=== PATIENT | male | born 2000 | race African-American/Black ===

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

== ENCOUNTER 2022-01-16 17:15 | Emergency (ER) | payer SELFPAY ==
--- OUTSIDE RECORDS SUMMARY | 2022-01-16 17:19 | XMS REPORT | Continuity of Care Document ---
:2000 Author Organization [facility] t Address [address] [place] [address] Care Team Providers Name Role Phone Unavailable Unavailable Unavailable Problems This patient has no known problems. Allergies, Adverse Reactions, Alerts This patient has no known allergies or adverse reactions. Medications This patient has no known medications. Procedures This patient has no known procedures. Results This patient has no known results.
--- NOTE | 2022-01-16 19:01 | EDPHYS ---
[facility]ician [facility]ation [facility] Name: Montrell Negrete Age: 21 yrs Sex: Male : 2000 Arrival Date: 01/16/2022 Time: 17:16 Bed IW2 Private MD: ED Physician Jerrod Thornton HPI: 01/16 17:44 This 21 yrs old Black Male presents to ER via Ambulatory with complaints of Headache, jmm STD Exposure. 17:44 Onset: The symptoms/episode began/occurred gradually. jmm 17:44 This is a 21 year old male with a history of asthma that presents to the ED with jmm complaints of std exposure. partner recently diagnosed with gonorrhea. Historical: - Allergies: 17:52 No Known Allergies; ss - Home Meds: 19:25 albuterol sulfate 90 mcg/actuation Inhl HFAA 1 puff every 4-6 hours [Active]; Topamax kd3 Oral [Active]; - PMHx: 17:52 Asthma; headaches and seasonal allergies; ss - PSHx: 17:52 None; ss - Immunization history:: Adult Immunizations unknown. - Social history:: Smoking status: Patient denies any tobacco usage or history of. ROS: 18:57 Constitutional: Negative for fever, chills, and weight loss, Cardiovascular: Negative jmm for chest pain, palpitations, and edema, Respiratory: Negative for shortness of breath, cough, wheezing, and pleuritic chest pain. 18:57 Neuro: Positive for headache. 18:57 All other systems are negative. Exam: 18:57 Constitutional: This is a well developed, well nourished patient who is awake, alert, jmm and in no acute distress. Head/Face: atraumatic. Eyes: EOMI, no conjunctival erythema appreciated ENT: Moist Mucus Membranes Neck: Trachea midline, Supple Chest/axilla: Normal chest wall appearance and motion. Cardiovascular: Regular rate and rhythm. No edema appreciated Respiratory: Normal respirations, no respiratory distress appreciated Abdomen/GI: Non distended Back: Normal ROM Skin: General appearance color normal MS/ Extremity: Moves all extremities, no obvious deformities appreciated, no edema noted to the lower extremities Neuro: Awake and alert Psych: Behavior is normal, Mood is normal, Patient is cooperative and pleasant Vital Signs: 17:50 BP 143 / 103; Pulse 104; Resp 17; Temp 97; Pulse Ox 98% ; Weight 138.35 kg; Height 6 ss ft. 2 in. (187.96 cm); Pain 8/10; 19:25 BP 142 / 82; Pulse 102; Resp 17; Pulse Ox 99% on R/A; kd3 17:50 Body Mass Index 39.16 (138.35 kg, 187.96 cm) MDM: 17:44 Patient medically screened. [facility] 18:59 Data reviewed: vital signs, nurses notes. Counseling: I had a detailed discussion with jm the patient and/or guardian regarding: the historical points, exam findings, and any diagnostic results supporting the discharge/admit diagnosis, the need for outpatient follow up, to return to the emergency department if symptoms worsen or persist or if there are any questions or concerns that arise at home. Administered Medications: 19:20 Drug: Rocephin (cefTRIAXone) 1 grams Route: IM; Site: right gluteus; kd3 19:26 Follow up: Response: No adverse reaction kd3 19:20 Drug: AZITHromycin 1 grams Route: PO; kd3 19:26 Follow up: Response: No adverse reaction kd3 Disposition: 01/17 10:50 Co-signature as Attending Physician, Jerrod Thornton MD I agree with the assessment and kdr plan of care. Disposition Summary: 01/16/22 19:00 Discharge Ordered Location: Home [facility] Condition: Stable [facility] Diagnosis - Person with feared health complaint in whom no diagnosis is made jm Followup: jm - With: Private Physician - When: 2 - 3 days - Reason: Recheck today's complaints, Continuance of care, Re-evaluation by your physician Discharge Instructions: - Discharge Summary Sheet [facility] - Gonorrhea jm Forms: - Medication Reconciliation Form [facility] - Thank You Letter jmm - Antibiotic Education jmm - Prescription Opioid Use [facility] Signatures: Jerrod Thornton MD MD [facility] Willy Perez PA PA jmm Smirch, Shelby, RN RN Karma Leahy RN RN kd3 Corrections: (The following items were deleted from the chart) 01/16 18:58 17:44 This is a 21 year old male with a history of asthma that presents to the ED with jmm complaints. [facility]
--- NOTE | 2022-01-16 19:01 | ER ---
Nurse's Notes [facility] Name: Montrell Negrete Age: 21 yrs Sex: Male : 2000 Arrival Date: 01/16/2022 Time: 17:16 Bed IW2 Private MD: Diagnosis: Person with feared health complaint in whom no diagnosis is made Presentation: 01/16 17:50 Chief complaint: Patient states: Migraine x 2 days, reports girlfriend dx with ss gonorrhea. Coronavirus screen: At this time, the client does not indicate any symptoms associated with coronavirus-19. Ebola Screen: No symptoms or risks identified at this time. Initial Sepsis Screen: Does the patient meet any 2 criteria? No. Patient's initial sepsis screen is negative. Does the patient have a suspected source of infection? No. Patient's initial sepsis screen is negative. Risk Assessment: Do you want to hurt yourself or someone else? Patient reports no desire to harm self or others. Onset of symptoms is unknown. 17:50 Method Of Arrival: Ambulatory ss 17:50 Acuity: MARGARITA 4 ss Triage Assessment: 17:52 Headache History: The patient has had previous headaches and this one is similar to previous episodes. General: Appears in no apparent distress. uncomfortable, Behavior is calm, cooperative, appropriate for age. Pain: Complains of pain in BARBA Pain currently is 8 out of 10 on a pain scale. Pain began 2-3 days ago. Also complains of no other associated symptoms. Neuro: Level of Consciousness is awake, alert, obeys commands, Oriented to person, place, time, situation. Historical: - Allergies: 17:52 No Known Allergies; ss - Home Meds: 19:25 albuterol sulfate 90 mcg/actuation Inhl HFAA 1 puff every 4-6 hours [Active]; Topamax kd3 Oral [Active]; - PMHx: 17:52 Asthma; headaches and seasonal allergies; ss - PSHx: 17:52 None; ss - Immunization history:: Adult Immunizations unknown. - Social history:: Smoking status: Patient denies any tobacco usage or history of. Screenin:22 Abuse screen: Denies threats or abuse. Denies injuries from another. kd3 19:25 Nutritional screening: No deficits noted. Tuberculosis screening: No symptoms or risk kd3 factors identified. Fall Risk None identified. Assessment: 19:22 General: Appears in no apparent distress. Behavior is calm, cooperative. Neuro: Level kd3 of Consciousness is awake, alert, obeys commands, Oriented to person, place, time, situation. Respiratory: Airway is patent Trachea midline Respiratory effort is even, unlabored, Respiratory pattern is regular, symmetrical. Vital Signs: 17:50 BP 143 / 103; Pulse 104; Resp 17; Temp 97; Pulse Ox 98% ; Weight 138.35 kg; Height 6 ss ft. 2 in. (187.96 cm); Pain 8/10; 19:25 BP 142 / 82; Pulse 102; Resp 17; Pulse Ox 99% on R/A; kd3 17:50 Body Mass Index 39.16 (138.35 kg, 187.96 cm) ED Course: 17:16 Patient arrived in ED. as 17:25 Willy Perez PA is PHCP. [facility] 17:25 Jerrod Thornton MD is Attending Physician. [facility] 17:52 Triage completed. ss 17:52 Arm band placed on right wrist. ss 19:24 No provider procedures requiring assistance completed. Patient did not have IV access kd3 during this emergency room visit. 19:25 Patient has correct armband on for positive identification. kd3 Administered Medications: 19:20 Drug: Rocephin (cefTRIAXone) 1 grams Route: IM; Site: right gluteus; kd3 19:26 Follow up: Response: No adverse reaction kd3 19:20 Drug: AZITHromycin 1 grams Route: PO; kd3 19:26 Follow up: Response: No adverse reaction kd3 Medication: 19:25 VIS not applicable for this client. kd3 Outcome: 19:00 Discharge ordered by . [facility] 19:24 Discharged to home ambulatory. kd3 19:24 Condition: stable 19:24 Discharge instructions given to patient, Instructed on discharge instructions, follow up and referral plans. Demonstrated understanding of instructions, follow-up care. 19:26 Patient left the ED. kd3 Signatures: Willy Perez PA PA jmm Martinez, Amelia as Smirch, Shelby, RN RN Karma Leahy RN RN kd3
[2022-01-16] MEDS ORDERED: CEFTRIAXONE 1000 MG/VIAL ONE (19:10)
[2022-01-16] MEDS ORDERED: AZITHROMYCIN 250 MG TAB ONE (19:10)
[2022-01-16] MEDS ORDERED: LIDOCAINE 1% MPF 5 ML VIAL ONE (19:10)
[2022-01-16 21:57] VITALS: TEMP 97
[2022-01-16 21:58] VITALS: BP 142/82; O2SAT 99
== END 2022-01-16 19:26 | disposition home or self-care (01) ==
LOC: ER 17:15
DX: Z71.1 Person with feared health complaint in whom no diagnosis is made (principal)
CPT/HCPCS: 96372; 99283; J2001; Q0144

== ENCOUNTER 2022-06-13 21:29 | Emergency (ER) | payer SELFPAY ==
--- OUTSIDE RECORDS SUMMARY | 2022-06-13 21:42 | XMS REPORT | Continuity of Care Document ---
:2000 Author Organization [facility] t Address [address] [place] [address] [place] [id number] Care Team Providers Name Role Phone Unavailable Unavailable Unavailable Problems This patient has no known problems. Allergies, Adverse Reactions, Alerts This patient has no known allergies or adverse reactions. Medications This patient has no known medications. Procedures This patient has no known procedures. Results This patient has no known results.
--- NOTE | 2022-06-14 00:03 | ER ---
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 I feel short of breath and my nose is stopped up and my throat is itchy.". Coronavirus screen: Vaccine status: Patient reports being unvaccinated. At this time, the client does not indicate any symptoms associated with coronavirus-19. Ebola Screen: Patient negative for fever greater than or equal to 101.5 degrees Fahrenheit, and additional compatible Ebola Virus Disease symptoms Patient denies exposure to infectious person. Patient denies travel to an Ebola-affected area in the 21 days before illness onset. No symptoms or risks identified at this time. Initial Sepsis Screen: Does the patient meet any 2 criteria? No. Patient's initial sepsis screen is negative. Does the patient have a suspected source of infection? No. Patient's initial sepsis screen is negative. Risk Assessment: Do you want to hurt yourself or someone else? Patient reports no desire to harm self or others. Onset of symptoms was June 13, 2022. 22:01 Method Of Arrival: Ambulatory vc1 22:01 Acuity: MARGARITA 4 vc1 Triage Assessment: 23:00 General: Appears in no apparent distress. uncomfortable, Behavior is calm, cooperative, vc1 appropriate for age. Respiratory: Reports shortness of breath at rest Onset: The symptoms/episode began/occurred today, the patient has mild shortness of breath. Historical: - Allergies: 22:03 No Known Allergies; vc1 - PMHx: 22:03 Asthma; headaches and seasonal allergies; vc1 - PSHx: 22:03 None; vc1 - Immunization history:: Client reports having NOT received the Covid vaccine. - Social history:: Smoking status: Patient denies any tobacco usage or history of. Screenin/03 00:35 [facility] ED Fall Risk Assessment (Adult) History of falling in the last 3 months, vc1 including since admission No falls in past 3 months (0 pts) Confusion or Disorientation No (0 pts) Intoxicated or Sedated No (0 pts) Impaired Gait No (0 pts) Mobility Assist Device Used No (0 pt) Altered Elimination No (0 pt) Score/Fall Risk Level 0 - 2 = Low Risk Oriented to surroundings, Maintained a safe environment, Educated pt \\T\\ family on fall prevention, incl call for assistance when getting out of bed. Abuse screen: Denies threats or abuse. Nutritional screening: No deficits noted. Tuberculosis screening: No symptoms or risk factors identified. Assessment: 06/13 22:03 Pain: Denies pain. Cardiovascular: Rhythm is regular. Respiratory: Airway is patent vc1 Respiratory effort is even, unlabored, Vital Signs: 22:01 BP 131 / 81; Pulse 97; Resp 18; Temp 98.3; Pulse Ox 98% ; Weight 140.16 kg; Height 6 vc1 ft. 3 in. ; Pain 0/10; 22:01 Body Mass Index 38.62 (140.16 kg, 190.5 cm) vc1 22:01 Pain Scale: Adult vc1 ED Course: 21:40 Patient arrived in ED. mr 21:45 Willy Perez PA is PHCP. rasta 21:45 Elliot Fletcher MD is Attending Physician. [facility] 22:03 Triage completed. vc1 22:03 Arm band placed on right wrist. vc1 05 00:35 Haydee Mcclellan RN is Primary Nurse. vc1 00:36 No provider procedures requiring assistance completed. Patient did not have IV access vc1 during this emergency room visit. Administered Medications: 00:12 Drug: Dexamethasone IM 10 mg Route: IM; Site: left deltoid; vc1 00:12 Drug: Levalbuterol Inhalation 1.25 mg Route: Inhalation; vc1 Medication: 00:36 VIS not applicable for this client. vc1 Outcome: 00:02 Discharge ordered by . [facility] 00:36 Discharged to home ambulatory, with significant other. vc1 00:36 Condition: good 00:36 Discharge instructions given to patient, Instructed on discharge instructions, follow up and referral plans. medication usage, Demonstrated understanding of instructions, follow-up care, medications, Prescriptions given X 2. 00:36 Patient left the ED. vc1 Signatures: Willy Perez PA PA jmm Rivera, Mary mr Calcote, Haydee, RN RN vc1
--- NOTE | 2022-06-14 00:03 | EDPHYS ---
Physician Documentation [facility] Name: Montrell Negrete Age: 22 yrs Sex: Male : 2000 Arrival Date: 06/13/2022 Time: 21:29 Bed Treatment Private MD: ED Physician Elliot Fletcher HPI: 06/13 21:55 This 22 yrs old Black Male presents to ER via Ambulatory with complaints of Chemical jmm Inhalation. 21:55 The patient or guardian reports cough. Onset: The symptoms/episode began/occurred jmm gradually. Modifying factors: The symptoms are alleviated by nothing. the symptoms are aggravated by nothing. This is a 22-year-old male with history of asthma, seasonal allergies the presents emerged department with complaints of sore throat congestion, wheezing and cough which he attributes to being exposed to dust and debris while at work. Denies fever. Patient states he has been using his inhaler with no relief. Historical: - Allergies: 22:03 No Known Allergies; vc1 - PMHx: 22:03 Asthma; headaches and seasonal allergies; vc1 - PSHx: 22:03 None; vc1 - Immunization history:: Client reports having NOT received the Covid vaccine. - Social history:: Smoking status: Patient denies any tobacco usage or history of. ROS: 21:55 Constitutional: Negative for fever, chills, and weight loss, Cardiovascular: Negative jmm for chest pain, palpitations, and edema, Respiratory: Negative for shortness of breath, cough, wheezing, and pleuritic chest pain. 21:55 ENT: Positive for sinus congestion. 21:55 Respiratory: Positive for cough. 21:55 All other systems are negative. Exam: 21:55 Constitutional: This is a well developed, well nourished patient who is awake, alert, jmm and in no acute distress. Head/Face: atraumatic. Eyes: EOMI, no conjunctival erythema appreciated ENT: Moist Mucus Membranes Neck: Trachea midline, Supple Chest/axilla: Normal chest wall appearance and motion. Cardiovascular: Regular rate and rhythm. No edema appreciated Respiratory: Normal respirations, no respiratory distress appreciated Abdomen/GI: Non distended Back: Normal ROM Skin: General appearance color normal MS/ Extremity: Moves all extremities, no obvious deformities appreciated, no edema noted to the lower extremities Neuro: Awake and alert Psych: Behavior is normal, Mood is normal, Patient is cooperative and pleasant Vital Signs: 22:01 BP 131 / 81; Pulse 97; Resp 18; Temp 98.3; Pulse Ox 98% ; Weight 140.16 kg; Height 6 vc1 ft. 3 in. ; Pain 0/10; 22:01 Body Mass Index 38.62 (140.16 kg, 190.5 cm) vc1 22:01 Pain Scale: Adult vc1 MDM: 21:56 Patient medically screened. [facility] 06/14 00:01 Differential diagnosis: Upper respiratory infection, viral infection, reactive airway, jmm asthma exacerbation. Data reviewed: vital signs, nurses notes. I considered the following discharge prescriptions or medication management in the emergency department Medications were administered in the Emergency Department. See MAR. Counseling: I had a detailed discussion with the patient and/or guardian regarding: the historical points, exam findings, and any diagnostic results supporting the discharge/admit diagnosis, the need for outpatient follow up, to return to the emergency department if symptoms worsen or persist or if there are any questions or concerns that arise at home. ED course: Patient is alert nontoxic in appearance in the ED. Will treat with 5-day course of steroids. Patient advised follow-up PCP otherwise given strict return precautions.. Administered Medications: 00:12 Drug: Dexamethasone IM 10 mg Route: IM; Site: left deltoid; vc1 00:12 Drug: Levalbuterol Inhalation 1.25 mg Route: Inhalation; vc1 Disposition: 04:49 Co-signature as Attending Physician, Elliot Fletcher MD I reviewed the patient's care rt provided by the Advanced Practice Provider and agree with the diagnosis and treatment plan. Disposition Summary: 06/14/22 00:02 Discharge Ordered Location: Home [facility] Condition: Stable [facility] Diagnosis - Unspecified asthma, uncomplicated [facility] Followup: [facility] - With: Private Physician - When: 2 - 3 days - Reason: Recheck today's complaints, Continuance of care, Re-evaluation by your physician Discharge Instructions: - Discharge Summary Sheet [facility] - Asthma, Adult [facility] Forms: - Medication Reconciliation Form [facility] - Thank You Letter [facility] - Antibiotic Education [facility] - Prescription Opioid Use [facility] Prescriptions: - albuterol sulfate 90 mcg/actuation Inhalation HFA Aerosol Inhaler - inhale 2 puff by INHALATION route every 4 to 6 hours As needed Dispense with christian aerochamber; 1 unit; Refills: 0, Product Selection Permitted - Prednisone 20 mg Oral Tablet - take 3 tablets by ORAL route once daily for 5 days; 15 tablet; Refills: 0, christian Product Selection Permitted Signatures: Willy Perez PA PA jmm Calcote, Vanessa RN RN vc1 Elliot Fletcher MD MD rt
[2022-06-14] MEDS ORDERED: dexAMETHasone 10 MG/ML VIAL ONE (00:11)
[2022-06-14] MEDS ORDERED: LEVALBUTEROL 0.63 MG/3 ML NEB ONE (00:11)
[2022-06-14 01:10] VITALS: BP 131/81; TEMP 98.3; O2SAT 98
== END 2022-06-14 00:36 | disposition home or self-care (01) ==
LOC: ER 21:29
DX: J45.909 Unspecified asthma, uncomplicated (principal)
CPT/HCPCS: 96372; 99284; J1100; J7614

== ENCOUNTER 2023-05-15 11:36 | Emergency (ER) | payer SELFPAY ==
--- OUTSIDE RECORDS SUMMARY | 2023-05-15 11:39 | XMS REPORT | Continuity of Care Document ---
Author Name Unknown Address [address] [place] [address] [facility] thconnect Address 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[employer] Name Role Phone Néstor Zeng MD Primary Care Physician QUINTEN PENALOZA Attending Clinician Unavailable Quinten Penaloza MD Attending Clinician Payers Payer Name Policy Type Policy Number Effective Date Expirati on Date Source [employer] [place] [id number] 2015 00:00:00 Allergies, Adverse Reactions, Alerts Allergy Name Allergy Type Status Severity Reaction(s) Onset Date Inactive Date Treating Clinician Comments Source NO KNOWN ALLERGIE S Drug Class Active [facility] Social History Social Habit Start Date Stop Date Quantity Comments Source Gender identity [facility] Sexual orientation U [facility] Sex Assigned At 2000 00:00:00 2000 00:00:00 [facility] Smoking Status Start Date Stop Date Source Tobacco smoking consumption unknown [facility] Medications Ordered Medication Name Filled Medication Name Start Date Stop Date Current Medication? Ordering Clinician Indication Dosage Frequency Signature (SIG) Comments Components Source predniSONE (DELTASONE) tablet 20 mg 10-08 10:00: 00 10-08 09:59 :00 No 20mg 20 mg, Oral, ONCE, 1 dose, On 10/08/22 at 0500, NADIA [facility] ipratropium -albuteroL (DUONEB) 0.5 mg-3 mg(2.5 mg base)/3 mL nebulizer solution 3 mL 10-08 07:00: 00 Yes 3mL 3 mL, Inhalation , QID, First dose on 10/08/22 at 0200, Until Discontinu ed, Routine [facility] ALBUTEROL SULFATE HFA INHALE 10-08 04:54: 16 Yes Inhale. [facility] albuterol (PROVENTIL) 5 mg/mL nebulizer solution 10-08 04:54: 13 Yes 2.5mg Inhale 2.5 mg every 4 (four) hours as needed for Wheezing or Shortness of Breath. [facility] predniSONE 20 mg tablet 10-08 00:00: 00 Yes [id number] TAKE ONE TABLET ORALLY DAILY [facility] albuterol 90 mcg/actuati on inhaler 10-08 00:00: 00 Yes [id number] 2{puff} Inhale 2 Puffs every 4 (four) hours as needed for Wheezing or Shortness of Breath. [facility] albuterol 2.5 mg /3 mL (0.083 %) nebulizer solution 10-08 00:00: 00 Yes [id number] 2.5mg Inhale 3 mL every 4 (four) hours. May also nebulize one extra every 6 hours. [facility] traMADOL (ULTRAM) 50 mg tablet 11-08 00:00: 00 Yes 50mg Take 1 tablet by mouth every 6 (six) hours as needed for Pain (scale 4-6). Galileo Hernandez PA-C / Magdi Fuentes MD VICTORINO# [id number] DPS# [id number] x Lic.# [id number] NPI# [id number] [facility] Vital Signs Vital Name Observation Time Observation Value Comments S ource Systolic blood pressure 2022-10-08 06:47:00 154 mm[Hg] [facility] Diastolic blood pressure 2022-10-08 06:47:00 88 mm[Hg] [facility] Heart rate 2022-10-08 06:47:00 95 /min [facility] Body temperature 2022-10-08 06:47:00 36.61 Yolie [facility] Respiratory rate 2022-10-08 06:47:00 22 /min [facility] Body weight 2022-10-08 06:47:00 140.615 kg [facility] Oxygen saturation in Arterial blood by Pulse oximetry 2022-10-08 06:47:00 98 /min [place] o [facility] Procedures Procedure Date / Time Performed Performing Clinicia n Source CONSENT/REFUSAL FOR DIAGNOSIS AND TREATMENT 2022-10-08 06:30:40 Doctor Unassigned, [place] [facility] Encounters Start Date/Time End Date/Time Encounter Type Admission Type Attending Clinicians Care Facility Care Department Encounter ID Source 2022-10-08 01:49:00 2022-10-08 05:02:00 Emergency X QUINTEN PENALOZA [facility] ERT [id number] [facility] 2022-10-08 01:49:00 2022-10-08 05:02:00 Emergency Quinten Penaloza [facility] [id number] [facility] Notes Date/Time Note Provider Source 2022-10-08 05:01:23 [id number] 04-10-26T05:01:23 Pt discharged home. Given all education and information regarding prescriptions; s/s of worsening condition; and importance of follow up. Verbalized understanding. Alert and ambulatory to pov. [id number] department [id number]:02:07Emergen y department [id number]. [id number] for patient [id number] A Paul RN[id number] 446ZQKQHGMQGQGFASFUXYFOQX4736-00- 27T05:02:[id number]. 15|[id number]. [id number] Pascual Nava Zak RN [facility] 2022-10-08 01:45:29 [id number] PcUgnzEnLGUKM [id number] 04-10-26T01:45:29 CC: patient has asthma and yesterday started having increased shortness of breath and tightness. Pt is supposed to take have an inhaler but can't get it filled do to cost. PMHx: asthmaMEDS: albuterol Awake, alert, oriented, resp reg unlabored, skin warm and dry, color appropriate for race, moves all ext without difficulty, amb with no assist Appears in no distress [id number] department Triage [id number]:47:26Emergen y department Triage [id number] for patient [id number] department [id number] Tucker RNUT[id number] [id number]- 27T01:47:[id number]. 15|[id number]. [id number] Ysabel Shaw RN [facility]"
--- NOTE | 2023-05-15 11:54 | EDPHYS ---
Physician Documentation [facility] Name: Montrell Negrete Age: 23 yrs Sex: Male : 2000 Arrival Date: 05/15/2023 Time: 11:36 Bed 13 Private MD: ED Physician Elliot Fletcher HPI: 05/14 13:16 This 23 yrs old Black Male presents to ER via Ambulatory with complaints of rt Constipation. 13:16 Patient presents to the ED with constipation. Patient reports that he has had only a rt small amount of hard stool over the past week. Has tried hzvn-azw-duqyint laxatives, enema, has no relief with that. States that he occasionally gets constipated about once per year. Denies other acute complaints at this time, symptoms are mild in severity, no other aggravating or alleviating factors.. Historical: - Allergies: 11:50 No Known Allergies; nj1 - PMHx: 11:50 Asthma; headaches and seasonal allergies; nj1 - Immunization history:: Client reports having NOT received the Covid vaccine. - Infectious Disease History:: Denies. - Social history:: Smoking status: Patient denies any tobacco usage or history of. - Family history:: not pertinent. ROS: 13:16 Constitutional: Negative for fever, chills, and weight loss, Cardiovascular: Negative rt for chest pain, palpitations, and edema, Respiratory: Negative for shortness of breath, cough, wheezing, and pleuritic chest pain, Skin: Negative for injury, rash, and discoloration, Neuro: Negative for headache, weakness, numbness, tingling, and seizure, Psych: Negative for depression, anxiety, suicide ideation, homicidal ideation, and hallucinations, 13:16 Respiratory: Positive for 13:16 Abdomen/GI: Positive for constipation, Negative for abdominal pain, nausea and vomiting, Exam: 13:16 Constitutional: This is a well developed, well nourished patient who is awake, alert, rt and in no acute distress. Head/Face: Normocephalic, atraumatic. Chest/axilla: Normal chest wall appearance and motion. Nontender with no deformity. No lesions are appreciated. Cardiovascular: Regular rate and rhythm with a normal S1 and S2. No gallops, murmurs, or rubs. Normal PMI, no JVD. No pulse deficits. Respiratory: Lungs have equal breath sounds bilaterally, clear to auscultation and percussion. No rales, rhonchi or wheezes noted. No increased work of breathing, no retractions or nasal flaring. Abdomen/GI: Soft, non-tender, with normal bowel sounds. No distension or tympany. No guarding or rebound. No evidence of tenderness throughout. Skin: Warm, dry with normal turgor. Normal color with no rashes, no lesions, and no evidence of cellulitis. MS/ Extremity: Pulses equal, no cyanosis. Neurovascular intact. Full, normal range of motion. Neuro: Awake and alert, GCS 15, oriented to person, place, time, and situation. Cranial nerves II-XII grossly intact. Motor strength 5/5 in all extremities. Sensory grossly intact. Cerebellar exam normal. Normal gait. Vital Signs: 11:43 BP 133 / 80; Pulse 95; Resp 18; Temp 96.9(TE); Pulse Ox 97% on R/A; Weight 145.15 kg; nj1 Height 6 ft. 2 in. ; Pain 8/10; 12:00 BP 140 / 96; Pulse 86; Resp 16; Pulse Ox 99% on R/A; db 11:43 Body Mass Index 41.09 (145.15 kg, 187.96 cm) nj1 11:43 Pain Scale: Adult nj1 MDM: 11:46 Patient medically screened. rt 13:16 Differential Diagnosis Constipation. Data reviewed: vital signs, nurses notes. Test rt considered but Not performed: CT: No abdominal tenderness, benign exam, suspect simple constipation, CT scan is not indicated. Counseling: I had a detailed discussion with the patient and/or guardian regarding the historical points, exam findings, and any diagnostic results supporting the discharge/admit diagnosis, the need for outpatient follow up, to return to the emergency department if symptoms worsen or persist or if there are any questions or concerns that arise at home. Administered Medications: 12:20 Drug: Lactulose PO 30 grams 45 ml PO once Volume: 45 ml; Route: PO; db 12:28 Follow up: Response: No adverse reaction db Disposition Summary: 05/15/23 11:53 Discharge Ordered Notes: Location: Home rt Problem: new rt Symptoms: are unchanged rt Condition: Stable rt Diagnosis - Constipation rt Followup: rt - With: Private Physician - When: 2 - 3 days - Reason: Discharge Instructions: - Discharge Summary Sheet rt - Constipation, Adult rt Forms: - Medication Reconciliation Form rt - Thank You Letter rt - Antibiotic Education rt - Prescription Opioid Use rt - Patient Portal Instructions rt - Leadership Thank You Letter rt Prescriptions: - Lactulose 10 gram/15 mL Oral solution - take 30 milliliters ORAL route once daily; 150 milliliter; Refills: 0, Product rt Selection Permitted Signatures: Jennifer Weathers RN RN db Elliot Fletcher MD MD rt Nicki Lundy RN RN nj1
--- NOTE | 2023-05-15 11:54 | ER ---
Nurse's Notes [facility] Name: Montrell Negrete Age: 23 yrs Sex: Male : 2000 Arrival Date: 05/15/2023 Time: 11:36 Bed 13 Private MD: Diagnosis: Constipation Presentation: 05/14 11:43 Chief complaint: Patient states: Constipation. Pt states he has not been able to have a nj1 normal bm for almost 2 weeks, has tried stool softeners and enema without significant relief. 11:43 Coronavirus screen: Vaccine status: Patient reports being unvaccinated. Ebola Screen: nj1 Patient denies travel to an Ebola-affected area in the 21 days before illness onset. Initial Sepsis Screen: Does the patient meet any 2 criteria?. Initial Sepsis Screen: Does the patient have a suspected source of infection? No. Patient's initial sepsis screen is negative. Risk Assessment: Do you want to hurt yourself or someone else? Patient reports no desire to harm self or others. Onset of symptoms was April 2023. 11:43 Method Of Arrival: Ambulatory [facility] 11:43 Acuity: MARGARITA 3 nj Historical: - Allergies: 11:50 No Known Allergies; nj1 - PMHx: 11:50 Asthma; headaches and seasonal allergies; nj1 - Immunization history:: Client reports having NOT received the Covid vaccine. - Infectious Disease History:: Denies. - Social history:: Smoking status: Patient denies any tobacco usage or history of. - Family history:: not pertinent. Screenin:28 [facility] ED Fall Risk Assessment (Adult) History of falling in the last 3 months, db including since admission No falls in past 3 months (0 pts) Confusion or Disorientation No (0 pts) Intoxicated or Sedated No (0 pts) Impaired Gait No (0 pts) Mobility Assist Device Used No (0 pt) Altered Elimination No (0 pt) Score/Fall Risk Level 0 - 2 = Low Risk Oriented to surroundings, Maintained a safe environment. Abuse screen: Denies threats or abuse. Denies injuries from another. Nutritional screening: No deficits noted. Tuberculosis screening: No symptoms or risk factors identified. Assessment: 12:00 Reassessment: Patient appears in no apparent distress at this time. Patient and/or db family updated on plan of care and expected duration. Pain level reassessed. Patient is alert, oriented x 3, equal unlabored respirations, skin warm/dry/pink. General: Appears in no apparent distress. comfortable, Behavior is calm, cooperative. Pain: Complains of pain in RECTAL. Neuro: Level of Consciousness is awake, alert, obeys commands, Oriented to person, place, time, situation. Respiratory: Airway is patent Respiratory effort is even, unlabored, Respiratory pattern is regular, symmetrical. GI: Bowel sounds Abd is soft. Vital Signs: 11:43 BP 133 / 80; Pulse 95; Resp 18; Temp 96.9(TE); Pulse Ox 97% on R/A; Weight 145.15 kg; nj1 Height 6 ft. 2 in. ; Pain 8/10; 12:00 BP 140 / 96; Pulse 86; Resp 16; Pulse Ox 99% on R/A; db 11:43 Body Mass Index 41.09 (145.15 kg, 187.96 cm) nj1 11:43 Pain Scale: Adult [facility] ED Course: 11:40 Patient arrived in ED. rg4 11:44 Elliot Fletcher MD is Attending Physician. rt 11:50 Triage completed. nj1 11:51 Arm band placed on. nj1 12:17 Jennifer Weathers, RN is Primary Nurse. db 12:28 Patient has correct armband on for positive identification. Bed in low position. Call db light in reach. Side rails up X 1. Provided Education on: CONSTIPATION. Pulse ox on. NIBP on. Warm blanket given. 12:28 No provider procedures requiring assistance completed. Patient did not have IV access db during this emergency room visit. Administered Medications: 12:20 Drug: Lactulose PO 30 grams 45 ml PO once Volume: 45 ml; Route: PO; db 12:28 Follow up: Response: No adverse reaction db Medication: 12:28 VIS not applicable for this client. db Outcome: 11:53 Discharge ordered by . rt 12:28 Discharged to home ambulatory, with family, db 12:28 Condition: stable 12:28 Discharge instructions given to patient, Instructed on discharge instructions, follow up and referral plans. Prescriptions given X 1, 12:31 Patient left the ED. db Signatures: Lizette Cheung rg4 Jennifer Weathers, RN RN db Elliot Fletcher MD MD rt Nicki Lundy RN RN nj1
[2023-05-15] MEDS ORDERED: LACTULOSE 20 GM/30 ML UCUP ONE (12:23)
[2023-05-15 18:08] VITALS: BP 140/96; TEMP 96.9; O2SAT 99
== END 2023-05-15 12:31 | disposition home or self-care (01) ==
LOC: ER 11:36
DX: K59.00 Constipation, unspecified (principal)
CPT/HCPCS: 99283